=== PATIENT | male | born 1935 | race African-American/Black ===

== ENCOUNTER 2021-08-19 18:25 | Emergency (ER) | payer MEDICAID ==
[~2021-08-19] VITALS: Ht 170.2 cm; Wt 71.0 kg
[2021-08-19 18:28] VITALS: BP 102/69
== END 2021-08-19 23:57 | disposition left against medical advice (07) ==
LOC: ER 22:07
DX: Z53.21 Procedure and treatment not carried out due to patient leaving prior to being seen by health care provider (principal); R07.9 Chest pain, unspecified
CPT/HCPCS: 71045; 93005